=== PATIENT | male | born 1990 | race Caucasian/White ===

== ENCOUNTER 2018-06-30 06:21 | Emergency (ER) | payer MEDICAID, SELFPAY ==
[2018-06-30] MEDS ORDERED: Lidocaine 1% w/Epinephrine 1:100K 30 ML VIAL ONE (07:02)
[2018-06-30] MEDS ORDERED: Bacitracin Zinc 1 Packet ONE (07:08)
--- NOTE | 2018-06-30 10:02 | CT ---
PRELIMINARY REPORT/[facility]/EMERGENTY AFTER-HOURS PROCEDURE CT Head Without Contrast EXAM DATE/TIME: 06/30/2018 6:45 AM CLINICAL HISTORY: 28 years old, male; Pain and injury or trauma; Fall; Initial encounter; Abrasion; Face; Injury date: Today; Injury details: PT fell from seated while hand cuffed and landed on face, no loc TECHNIQUE: Axial computed tomography images of the head/brain without contrast. All CT scans at this facility use at least one of these dose optimization techniques: automated expos ure control; mA and/or kV adjustment per patient size (includes targeted exams where dose is matched to clinical indication); or iterative reconstruction. Coronal and sagittal reformatted images were cr eated and reviewed. COMPARISON: No relevant prior studies available. FINDINGS: Brain: Normal. No hemorrhage. No significant white matter disease. No edema. Ventricles: Normal. No ventriculomegaly. Bones/joints: Normal. No acute fracture. Sinuses: Trace opacification within the LEFT maxillary sinus. Mastoid air cells: Normal as visualized. No mastoid effusion. Soft tissues: There is mild mid superior scalp swelling. IMPRESSION: No acute intracranial hemorrhage. Thank you for allowing us to participate in the care of your patient. Dictated and Authenticated by: Robert Martinez MD 06/30/2018 7:48 AM Central Time ([place]) FINAL REPORT EMERGENT AFTER HOURS CT HEAD WITHOUT IV CONTRAST: Date: 06-30-18 History: Trauma. Injury after fall from seated position. Landed on face. IMPRESSION: 1. The cerebellar tonsils are low lying and have a slight peg-like configuration and appear to lie ap proximately 8 mm below the level of the foramen magnum suggesting a Chiari I malformation. There is n o hydrocephalus present. 2. No acute intracranial abnormalities demonstrated. 3. Sinus disease with mucosal thickening in each maxillary antrum and ethmoidal air cells with tiny a ir fluid level in the left sphenoid sinus. 4. Findings are in disagreement with the initial preliminary report. The low lying cerebellar tonsils suggesting Chiari I malformation was not discussed on the preliminary report. However, this would be better evaluated with MRI examination. 5. As noted by [facility], there is no evidence of an acute intracranial abnormality demonstrated. Code T POS: [facility]
--- NOTE | 2018-06-30 10:06 | CT ---
PRELIMINARY REPORT/[facility]/EMERGENTY AFTER-HOURS PROCEDURE CT Cervical Spine Without Contrast EXAM DATE/TIME: 06/30/2018 6:47 AM CLINICAL HISTORY: 28 years old, male; Pain and injury or trauma; Fall; Initial encounter; Sprain or strain, cervical li gaments; Neck pain; Injury details: PT fell from seated while hand cuffed and landed on face, no loc TECHNIQUE: Axial computed tomography images of the cervical spine without intravenous contrast. All CT scans at this facility use at least one of these dose optimization techniques: automated exposure control; mA and/or kV adjustment per patient size (includes targeted exams where dose is matched to clinical liilya cation); or iterative reconstruction. Coronal and sagittal reformatted images were created and review ed. COMPARISON: No relevant prior studies available. FINDINGS: Vertebrae: No acute cervical spine fracture is demonstrated. The vertebral foramen are grossly intact . Discs/Spinal canal/Neural foramina: No spinal stenosis. No neural foraminal narrowing. Soft tissues: Unremarkable. Lungs: Lung apices are normal. IMPRESSION: No acute cervical spine fracture is demonstrated. Thank you for allowing us to participate in the care of your patient. Dictated and Authenticated by: Robert Martinez MD 06/30/2018 7:50 AM Central Time ([place]) FINAL REPORT EMERGENT AFTER HOURS NONCONTRAST CT CERVICAL SPINE: Date: 06-30-18 History: Injury after fall from seated position. Trauma. Patient landed on face. Technique: Contiguous axial CT images were obtained through the cervical spine from the skull base to the level of the T2 vertebral body. Sagittal and coronal reformatted images are provided. IMPRESSION: 1. Cerebellar tonsils are low lying, better visualized on CT head with question of Chiari I malformat ion. This would be better evaluated with MRI examination of the brain. 2. No fracture or subluxation seen involving the cervical spine. 3. Mild sinus disease including small air fluid level in the left maxillary antrum. 4. Findings are in agreement with the preliminary report by MARY. No acute fracture or subluxation in volving the cervical spine. However, there is question of Chiari I malformation, and MRI brain is white ggested for further evaluation. Code T POS: [facility]
--- NOTE | 2018-06-30 10:09 | CT ---
Preliminary Radiology Report EXAM: CT Maxillofacial Without Contrast EXAM DATE/TIME: 06/30/2018 6:48 AM CLINICAL HISTORY: 28 years old, male; Pain and injury or trauma; Fall; Initial encounter; Abrasion; Forehead; Face pain ; Injury details: PT fell from seated while hand cuffed and landed on face, no loc TECHNIQUE: Axial computed tomography images of the face without intravenous contrast. All CT scans at this facility use at least one of these dose optimization techniques: automated exposure control; mA and/or kV adjustment per patient size (includes targeted exams where dose is matched to clinical indication); or iterative reconstruction. Coronal and sagittal reformatted images were created and reviewed. COMPARISON: No relevant prior studies available. FINDINGS: Orbits: There is no evidence of retro-bulbar hemorrhage. There is no evidence of globe or lens injury. Sinuses: There is trace opacification within the anterior ethmoid air cells and LEFT maxillary sinus possibly representing secretions. Bones/joints: No acute facial bone fracture. Dental: There is streak artifact from patient's dental work. Soft tissues: No significant facial soft tissue swelling. IMPRESSION: No acute facial bone fracture. Thank you for allowing us to participate in the care of your patient. Dictated and Authenticated by: Robert Martinez MD 06/30/2018 7:53 AM Central Time ([place]) FINAL REPORT EMERGENT AFTER HOURS NONCONTRAST CT FACIAL BONES: Date: 06-30-18 History: Injury after fall from seated position onto face. Trauma. IMPRESSION: 1. No evidence of a fracture involving the facial bones. 2. Sinus disease with mucosal thickening in ethmoid air cells and in each maxillary antrum with small air fluid level in the left maxillary antrum. 3. Orbits are normal and symmetric in appearance bilaterally. 4. As noted on CT head and CT cervical spine the cerebellar tonsils do appear low lying and may be re lated to Chiari I malformation. MRI brain is recommended for further evaluation. 5. Findings are in agreement with the preliminary report by MARY that no acute findings are seen. Code QA POS: [facility]
== END 2018-06-30 08:00 ==
LOC: MADERS 06:21
DX: S01.81XA Laceration without foreign body of other part of head, initial encounter (principal); F10.129 Alcohol abuse with intoxication, unspecified; W17.89XA Other fall from one level to another, initial encounter
CPT/HCPCS: 12013; 70450; 70486; 72125; J2001

== ENCOUNTER 2025-03-14 14:23 | Emergency (ER) | payer OTHER, SELFPAY | END 2025-03-14 16:03 | LOC: MADERS 14:23 | DX: S09.90XA Unspecified injury of head, initial encounter (principal); F17.210 Nicotine dependence, cigarettes, uncomplicated; W22.8XXA Striking against or struck by other objects, initial encounter | CPT/HCPCS: 70450 ==